=== PATIENT | male | born 1990 | race Caucasian/White ===

== ENCOUNTER 2016-11-02 20:25 | Emergency (ER) | payer OTHER ==
[~2016-11-02 20:25] MED LIST: ALBUTEROL SULF8.5 G1 IH; AMOXICILLIN875 MG PO; AUGMENTIN 875-11 TAB PO; FLEXERIL10 MG PO; MOBIC15 MG PO; MUCINEX D ER 61 EACH PO; PERCOCET 5/3251 TAB PO; PREDNISONE20 MG PO; PROAIR HFA8.5 GM IH; TYLENOL500 MG PO; ZITHROMAX250 M1 PO; ZITHROMAX250 MG PO
[2016-11-02] MEDS ORDERED: NO HOME MEDICATION XX (20:41)
[2016-11-02 21:34] LABS: BASO % 0.5 % (0-2); EOS % 0.7 % (0-7); HCT-HEMATOCRIT 47.1 % (36.0-53.5); HGB-HEMOGLOBIN 17.3 gm/dl (13.5-17.0); IMMATURE GRANULOCYTES ABSOLUTE 0.02 tho/cmm (0-0.03); IMMATURE GRANULOCYTES PERCENT 0.4 % (0-0.3); LYMPH % 42.5 % (20-45); LYMPH ABSOLUTE COUNT 2.4 tho/cmm (0.8-4.5); MCH (MEAN CORPUSCULAR HGB) 33.5 pg (28.0-32.0); MCV (MEAN CELL VOLUME) 91.1 fl (82.0-96.0); MEAN PLATELET VOLUME 10.2 cmc (9.4-12.4); MONO % 11.4 % (0-12); MONOCYTE ABSOLUTE COUNT 0.7 tho/cmm (0.0-1.2); NEUTROPHIL ABSOLUTE COUNT 2.5 tho/cmm (1.6-8.0); NEUTROPHIL-AUTOMATED 2.5 tho/cmm (1.6-8.0); NEUTROPHILS % 44.5 % (40-80); PLATELET COUNT 216 tho/cmm (150-450); RED BLOOD COUNT 5.17 mil/cmm (4.40-5.70); RED CELL DISTRIBUTION WIDTH 12.1 % (12.4-16.4); WHITE BLOOD COUNT 5.7 tho/cmm (4.0-10.0)
[2016-11-02 21:36] LABS: MCHC MEAN CORPUSCULAR HGB CONC 36.7 % (32.0-36.0)
[2016-11-02 21:47] LABS: ANION GAP 12 mmol/L (0-20); BLOOD UREA NITROGEN 14 mg/dl (6-24); CARBON DIOXIDE-VENOUS 23 mmol/L (22-32); CHLORIDE 108 mmol/l (96-110); GLUCOSE 96 mg/dL (70-110); MAGNESIUM 2.1 mg/dl (1.3-2.6); POTASSIUM 3.9 mmol/L (3.7-5.1); SODIUM 139 mmol/L (135-145); eGFR VALUE FOR BLACK >90 mL/Min
[2016-11-02] MEDS ORDERED: MECLIZINE HCL25 M3 PO (22:03)
== END 2016-11-02 22:25 ==
LOC: EDMED 20:25
PROVIDERS: Emergency Medicine
DX: R42 Dizziness and giddiness (principal); J06.9 Acute upper respiratory infection, unspecified; F17.200 Nicotine dependence, unspecified, uncomplicated
CPT/HCPCS: J2060; J2405